=== PATIENT | female | born 1990 | race Hispanic/Latino ===

== ENCOUNTER 2018-01-25 09:41 | Emergency (ER) | payer OTHER ==
[2018-01-25] MEDS ORDERED: SODIUM CHLORIDE 0.9% 1000ML 1,000 ML IV ONE (10:33)
[2018-01-25] MEDS ORDERED: ONDANSETRON HCL 4 MG/2 ML VIAL ONE (10:33)
[2018-01-25 10:42] LABS: BASOPHILS % (AUTO) 0.4 % (0.0-5.0); EOSINOPHILS % (AUTO) 3.4 % (0.0-8.0); HEMATOCRIT 35.2 % (36-48); LYMPHOCYTES % (AUTO) 9.5 % (21.0-51.0); MEAN CORPUSCULAR HEMOGLOBIN 30.5 pg (27.0-33.0); MEAN CORPUSCULAR HGB CONC 33.5 g/dL (32.0-36.0); MEAN CORPUSCULAR VOLUME 90.8 fL (79-99); MONOCYTES % (AUTO) 5.5 % (3.0-13.0); NEUTROPHILS % (AUTO) 81.2 % (40.0-77.0); PLATELET COUNT (AUTO) 188 K/uL (130-400); RED BLOOD CELL COUNT(AUTO) 3.88 MIL/uL (4.00-5.50); RED CELL DISTRIBUTION WIDTH 13.3 % (11.0-15.5); WHITE BLOOD COUNT (AUTO) 6.3 K/uL (4.8-10.8)
[2018-01-25 10:49] LABS: CREATININE 0.5 mg/dL (0.5-1.5); POTASSIUM 3.7 mmol/L (3.5-5.1)
[2018-01-25 11:03] LABS: APPEARANCE,URINE Clear (CLEAR); BILIRUBIN,URINE Negative (NEGATIVE); COLOR,URINE Yellow (YELLOW); GLUCOSE, URINE (UA) Negative (NEGATIVE); KETONES,URINE Negative (NEGATIVE); LEUKOCYTE ESTERASE ,URINE Trace (NEGATIVE); NITRATE,URINE Negative (NEGATIVE); OCCULT BLOOD,URINE Negative (NEGATIVE); PH,URINE 6.5 (5.0-8.0); PROTEIN,URINE Negative (NEGATIVE)
[2018-01-25 11:17] LABS: BACTERIA,URINE Few /HPF (None Seen); RBC,URINE 0-1 /HPF (0-1); WBC,URINE 0-1 /HPF (0-1)
== END 2018-01-25 11:50 | disposition home or self-care (01) ==
LOC: EDH 09:41
DX: O21.0 Mild hyperemesis gravidarum (principal); O98.519 Other viral diseases complicating pregnancy, unspecified trimester; O26.891 Other specified pregnancy related conditions, first trimester; R19.7 Diarrhea, unspecified; J30.9 Allergic rhinitis, unspecified; Z3A.14 14 weeks gestation of pregnancy; Z79.899 Other long term (current) drug therapy
CPT/HCPCS: 36415; 80048; 81001; 85025; 87804 ×2; 96361; 96374; 99284; J2405; J7030

== ENCOUNTER 2018-02-07 01:28 | Emergency (ER) | payer OTHER, BC | END 2018-02-07 06:15 | disposition home or self-care (01) | LOC: EDH 01:28 | DX: O20.0 Threatened abortion (principal); Z3A.16 16 weeks gestation of pregnancy; Z79.899 Other long term (current) drug therapy | CPT/HCPCS: 36415; 76805; 83033; 84702; 86900; 86901; 96372; 99285; J2791 ==

== ENCOUNTER 2018-11-23 22:59 | Emergency (ER) | payer BC, OTHER ==
[~2018-11-23 22:59] MED LIST: PREN1TAB80 PO
[2018-11-23] MEDS ORDERED: KETOROLAC TROMETHAMINE 60 MG/2 ML VIAL ONE (23:44)
== END 2018-11-24 00:12 | disposition home or self-care (01) ==
LOC: EDH 22:59
DX: K02.9 Dental caries, unspecified (principal); K04.7 Periapical abscess without sinus
CPT/HCPCS: 96372; 99284; J1885